=== PATIENT | female | born 1975 | race Caucasian/White ===

== ENCOUNTER 2018-03-24 10:40 | Inpatient (IN) | payer OTHER ==
[2018-03-24 10:49] VITALS: BMI 34.3
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
[2018-03-24] MEDS ORDERED: ACETAMINOPHEN 325 MG TABLET (FP) PO PRN (13:36)
[2018-03-24] MEDS ORDERED: LOPERAMIDE HCL 2 MG CAPSULE PO PRN (13:36)
[2018-03-24] MEDS ORDERED: MAGNESIUM HYDROX 2400MG/30ML ORAL SUSPENSION 30 ML CUP PO PRN (13:36)
[2018-03-24] MEDS ORDERED: P-EPHED 60MG/TRIPROLIDI 2.5MG TABLET PO PRN (13:36)
[2018-03-24] MEDS ORDERED: guaiFENesin/D-METHORPHAN HB 10 ML UNIT-DOSE CUPS PO PRN (13:36)
[2018-03-24] MEDS ORDERED: MAGNESIUM CITRATE 300 ML BOTTLE PO PRN (13:36)
[2018-03-24] MEDS ORDERED: MENTHOL/PHENOL 1 EACH UD MM PRN (13:36)
[2018-03-24] MEDS ORDERED: MAG HYDROX/AL HYDROX/SIMETH 30 ML UNIT-DOSE CUP PO PRN (13:36)
[2018-03-24] MEDS ORDERED: METHADONE HCL 40 MG DISPERSABLE TABLET PO SCH (13:45)
[2018-03-24] MEDS ORDERED: METHADONE HCL 40 MG DISPERSABLE TABLET ONE (15:34)
[2018-03-24] MEDS ORDERED: METHADONE HCL 10 MG TABLET ONE (15:34)
[2018-03-24] MEDS: METHADONE 40 MG, METHADONE 30 MG PO SCH (15:35)
[2018-03-24] MEDS: chlordiazePOXIDE HCL 25 MG CAPSULE PO PRN ×2 (15:36→20:00)
[2018-03-24] MEDS: chlordiazePOXIDE HCL 25 MG CAPSULE PO SCH ×2 (17:32→22:20)
[2018-03-24 17:37] LABS: URINE APPEARANCE SLCLOUDY; URINE BILIRUBIN NEGATIVE (<2.0 mg/dL); URINE COLOR YELLOW; URINE GLUCOSE (UA) NEGATIVE (NEGATIVE); URINE KETONE NEGATIVE (NEGATIVE); URINE LEUK ESTERASE NEGATIVE (NEGATIVE); URINE NITRITE NEGATIVE (NEGATIVE); URINE PROTEIN NEGATIVE (NEGATIVE); URINE UROBILINOGEN NEGATIVE mg/dL (0.2-1.0)
[2018-03-24] MEDS: THIAMINE HCL 100 MG TABLET (FP) PO SCH (22:19)
[2018-03-24] MEDS: RANITIDINE HCL 150 MG TABLET (FP) PO SCH (22:19)
[2018-03-24] MEDS: levETIRAcetam 500 MG TABLET (FP) PO SCH (22:19)
[2018-03-24] MEDS: BUDESONIDE/FORMETEROL FUMARATE 80/4.5 mcg INHALER IH SCH (22:20)
[2018-03-24] MEDS: MELATONIN 5 MG TABLETS PO PRN (22:20)
[2018-03-25] MEDS: chlordiazePOXIDE HCL 25 MG CAPSULE PO SCH ×4 (04:30→22:12)
[2018-03-25] MEDS ORDERED: METHADONE HCL 40 MG DISPERSABLE TABLET ONE (04:44)
[2018-03-25] MEDS ORDERED: METHADONE HCL 10 MG TABLET ONE (04:45)
[2018-03-25] MEDS: METHADONE 40 MG, METHADONE 30 MG PO SCH (05:31)
[2018-03-25] MEDS: hydrOXYzine PAMOATE 50 MG CAPSULE (FP) PO PRN ×2 (05:34→13:51)
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
--- NOTE | 2018-03-25 10:07 | EKG ---
Test Reason : Blood Pressure : / mmHG Vent. Rate : 073 BPM Atrial Rate : 073 BPM P-R Int : 120 ms QRS Dur : 088 ms QT Int : 386 ms P-R-T Axes : 051 057 052 degrees QTc Int : 425 ms NORMAL SINUS RHYTHM NORMAL ECG NO PREVIOUS ECGS AVAILABLE Confirmed by Herman Zayas MD ([id number]) on 03/25/2018 10:06:24 AM Referred By: Confirmed By:Herman Zayas MD
[2018-03-25] MEDS: levETIRAcetam 500 MG TABLET (FP) PO SCH ×2 (10:19→22:12)
[2018-03-25] MEDS: QUEtiapine FUMARATE 50 MG TABLET PO SCH (10:20)
[2018-03-25] MEDS: SERTRALINE HCL 50 MG TABLET (FP) PO SCH (10:20)
[2018-03-25] MEDS: PRENATAL VITAMINS W/ FOLIC ACID TABLET (FP) PO SCH (10:20)
[2018-03-25] MEDS: BUDESONIDE/FORMETEROL FUMARATE 80/4.5 mcg INHALER IH SCH ×2 (10:21→22:35)
[2018-03-25 10:24] LABS: HEMATOCRIT 39.4 % (32.4-45.2); HEMOGLOBIN 12.7 GM/dL (10.7-15.3); MCHC 32.2 g/dl (32.0-36.0); MEAN CELL VOLUME 86.7 fl (80-96); MEAN PLT VOLUME 8.3 fl (7.5-11.1); PLATELET COUNT 226 K/MM3 (134-434); RBC 4.54 M/mm3 (3.60-5.2); WHITE BLOOD COUNT 7.8 K/mm3 (4.0-10.0)
[2018-03-25 10:52] LABS: ALBUMIN 4.4 g/dl (3.4-5.0); ALK PHOS 99 U/L (45-117); ANION GAP 8 MMOL/L (8-16); BILIRUBIN,TOTAL 0.2 mg/dL (0.2-1); BLOOD UREA NITROGEN 17 mg/dL (7-18); CALCIUM 8.9 mg/dL (8.5-10.1); CHLORIDE 107 mmol/L (98-107); CO2 23 mmol/L (21-32); CREATININE 0.7 mg/dL (0.55-1.3); GLUCOSE,RANDOM 97 mg/dL (74-106); POTASSIUM 4.1 mmol/L (3.5-5.1); SGOT/AST 47 U/L (15-37); SGPT/ALT 82 U/L (13-61); SODIUM 139 mmol/L (136-145); TOT PROT 8.1 g/dl (6.4-8.2)
[2018-03-25 11:11] LABS: SICKLE CELL SCREEN NEGATIVE (NEGATIVE)
--- NOTE | 2018-03-25 12:14 | PN ---
S CIWA - CIWA Score Nausea/Vomitin-Mild Nausea/No Vomiting Muscle Tremors: 4-Moderate,w/Arms Extend Anxiety: 4-Mod. Anxious/Guarded Agitation: 3 Paroxysmal Sweats: 2 Orientation: 0-Oriented Tacttile Disturbances: 0-None Auditory Disturbances: 0-None Visual Disturbances: 0-None Headache: 0-None Present CIWA-Ar Total Score: 14 BHS Progress Note (SOAP) Subjective: PATIENT C/O SHAKES, ANXIETY, RESTLESSNESS AND NAUSEA. Objective: 03/25/18 12:12 Vital Signs Temperature 98.6 F 03/25/18 09:28 Pulse Rate 80 03/25/18 09:28 Respiratory Rate 18 03/25/18 09:28 Blood Pressure 139/66 03/25/18 09:28 O2 Sat by Pulse Oximetry (%) Laboratory Tests 03/24/18 03/25/18 03/25/18 14:20 06:00 06:00 WBC 7.8 RBC 4.54 Hgb 12.7 Hct 39.4 MCV 86.7 MCH 28.0 MCHC 32.2 RDW 14.0 Plt Count 226 MPV 8.3 Sickle Cell Screen Negative Sodium 139 Potassium 4.1 Chloride 107 Carbon Dioxide 23 Anion Gap 8 BUN 17 Creatinine 0.7 Creat Clearance w eGFR > 60 Random Glucose 97 Calcium 8.9 Total Bilirubin 0.2 AST 47 H ALT 82 H Alkaline Phosphatase 99 Total Protein 8.1 Albumin 4.4 Urine Color Yellow Urine Appearance Slcloudy Urine pH 6.0 Ur Specific [place] 1.024 Urine Protein Negative Urine Glucose (UA) Negative Urine Ketones Negative Urine Blood Negative Urine Nitrite Negative Urine Bilirubin Negative Urine Urobilinogen Negative Ur Leukocyte Esterase Negative RPR Titer 03/25/18 06:00 WBC RBC Hgb Hct MCV MCH MCHC RDW Plt Count MPV Sickle Cell Screen Sodium Potassium Chloride Carbon Dioxide Anion Gap BUN Creatinine Creat Clearance w eGFR Random Glucose Calcium Total Bilirubin AST ALT Alkaline Phosphatase Total Protein Albumin Urine Color Urine Appearance Urine pH Ur Specific [place] Urine Protein Urine Glucose (UA) Urine Ketones Urine Blood Urine Nitrite Urine Bilirubin Urine Urobilinogen Ur Leukocyte Esterase RPR Titer Nonreactive PE: ALERT AND ORIENTED X 3 SKIN WARM, +FACIAL SWEATING CAR S1S2 RESP CTA BL EXT +TREMORS, AMB AD MICHAEL PACING AND ANXIOUS Assessment: 03/25/18 12:13 WITHDRAWAL SX Plan: CONTINUE DETOX ENCOURAGE ORAL FLUIDS CONTINUE TO MONITOR CLINICALLY
[2018-03-25] MEDS: IBUPROFEN 400 MG TABLET (FP) PO PRN (15:14)
[2018-03-25] MEDS: chlordiazePOXIDE HCL 25 MG CAPSULE PO PRN (15:15)
[2018-03-25] MEDS: THIAMINE HCL 100 MG TABLET (FP) PO SCH (22:12)
[2018-03-25] MEDS: QUEtiapine FUMARATE 200 MG TABLET PO SCH (22:13)
[2018-03-25] MEDS: RANITIDINE HCL 150 MG TABLET (FP) PO SCH (22:13)
[2018-03-26] MEDS ORDERED: METHADONE HCL 10 MG TABLET ONE (06:06)
[2018-03-26] MEDS: chlordiazePOXIDE HCL 25 MG CAPSULE PO SCH ×2 (06:06→11:07)
[2018-03-26] MEDS: METHADONE 40 MG, METHADONE 30 MG PO SCH (06:06)
[2018-03-26] MEDS ORDERED: METHADONE HCL 40 MG DISPERSABLE TABLET ONE (06:06)
[2018-03-26] MEDS: IBUPROFEN 400 MG TABLET (FP) PO PRN (06:35)
[2018-03-26] MEDS: ALBUTEROL SO4 8 GM HFA INHALER IH PRN (07:54)
[2018-03-26] MEDS: levETIRAcetam 500 MG TABLET (FP) PO SCH ×2 (10:54→22:06)
[2018-03-26] MEDS: SERTRALINE HCL 50 MG TABLET (FP) PO SCH (10:54)
[2018-03-26] MEDS: BUDESONIDE/FORMETEROL FUMARATE 80/4.5 mcg INHALER IH SCH ×2 (10:55→22:06)
[2018-03-26] MEDS: PRENATAL VITAMINS W/ FOLIC ACID TABLET (FP) PO SCH (10:55)
[2018-03-26] MEDS: QUEtiapine FUMARATE 50 MG TABLET PO SCH (10:55)
[2018-03-26] MEDS: hydrOXYzine PAMOATE 50 MG CAPSULE (FP) PO PRN ×2 (10:56→18:32)
[2018-03-26] MEDS: chlordiazePOXIDE HCL 25 MG CAPSULE PO PRN (12:58)
--- NOTE | 2018-03-26 16:16 | PN ---
S CIWA - CIWA Score Nausea/Vomitin-No Nausea/No Vomiting Muscle Tremors: 3 Anxiety: 3 Agitation: 2 Paroxysmal Sweats: No Perspiration Orientation: 0-Oriented Tacttile Disturbances: 0-None Auditory Disturbances: 0-None Visual Disturbances: 0-None Headache: 0-None Present CIWA-Ar Total Score: 8 BHS Progress Note (SOAP) Subjective: PATIENT C/O SHAKES, ANXIETY AND FEELING RESTLESS. Objective: 03/26/18 16:14 Vital Signs Temperature 97.9 F 03/26/18 14:31 Pulse Rate 71 03/26/18 14:31 Respiratory Rate 18 03/26/18 14:31 Blood Pressure 95/54 L 03/26/18 14:31 O2 Sat by Pulse Oximetry (%) Laboratory Tests 03/24/18 03/24/18 03/25/18 14:20 14:30 06:00 WBC 7.8 RBC 4.54 Hgb 12.7 Hct 39.4 MCV 86.7 MCH 28.0 MCHC 32.2 RDW 14.0 Plt Count 226 MPV 8.3 Sickle Cell Screen Negative Sodium Potassium Chloride Carbon Dioxide Anion Gap BUN Creatinine Creat Clearance w eGFR Random Glucose Calcium Total Bilirubin AST ALT Alkaline Phosphatase Total Protein Albumin Urine Color Yellow Urine Appearance Slcloudy Urine pH 6.0 Ur Specific [place] 1.024 Urine Protein Negative Urine Glucose (UA) Negative Urine Ketones Negative Urine Blood Negative Urine Nitrite Negative Urine Bilirubin Negative Urine Urobilinogen Negative Ur Leukocyte Esterase Negative Levetiracetam 21.0 RPR Titer 03/25/18 03/25/18 06:00 06:00 WBC RBC Hgb Hct MCV MCH MCHC RDW Plt Count MPV Sickle Cell Screen Sodium 139 Potassium 4.1 Chloride 107 Carbon Dioxide 23 Anion Gap 8 BUN 17 Creatinine 0.7 Creat Clearance w eGFR > 60 Random Glucose 97 Calcium 8.9 Total Bilirubin 0.2 AST 47 H ALT 82 H Alkaline Phosphatase 99 Total Protein 8.1 Albumin 4.4 Urine Color Urine Appearance Urine pH Ur Specific [place] Urine Protein Urine Glucose (UA) Urine Ketones Urine Blood Urine Nitrite Urine Bilirubin Urine Urobilinogen Ur Leukocyte Esterase Levetiracetam RPR Titer Nonreactive PE: ALERT AND ORIENTED X 3 SKIN WARM AND DRY EXT +TREMORS, FULL ROM, NO EDEMA +ANXIETY AMB AD MICHAEL Assessment: 03/26/18 16:15 WITHDRAWAL SX Plan: CONTINUE DETOX ENCOURAGE ORAL FLUIDS CONTINUE TO MONITOR
[2018-03-26] MEDS: chlordiazePOXIDE 5 MG CAPSULE PO SCH ×2 (17:16→22:06)
[2018-03-26] MEDS: THIAMINE HCL 100 MG TABLET (FP) PO SCH (22:06)
[2018-03-26] MEDS: QUEtiapine FUMARATE 200 MG TABLET PO SCH (22:07)
[2018-03-26] MEDS: RANITIDINE HCL 150 MG TABLET (FP) PO SCH (22:07)
[2018-03-27] MEDS ORDERED: METHADONE HCL 40 MG DISPERSABLE TABLET ONE (05:01)
[2018-03-27] MEDS ORDERED: METHADONE HCL 10 MG TABLET ONE (05:01)
[2018-03-27] MEDS: METHADONE 40 MG, METHADONE 30 MG PO SCH (05:39)
[2018-03-27] MEDS: chlordiazePOXIDE 5 MG CAPSULE PO SCH ×2 (05:40→10:12)
[2018-03-27] MEDS: BUDESONIDE/FORMETEROL FUMARATE 80/4.5 mcg INHALER IH SCH ×2 (10:11→21:58)
[2018-03-27] MEDS: levETIRAcetam 500 MG TABLET (FP) PO SCH ×2 (10:12→22:00)
[2018-03-27] MEDS: PRENATAL VITAMINS W/ FOLIC ACID TABLET (FP) PO SCH (10:12)
[2018-03-27] MEDS: SERTRALINE HCL 50 MG TABLET (FP) PO SCH (10:12)
[2018-03-27] MEDS: QUEtiapine FUMARATE 50 MG TABLET PO SCH (10:12)
[2018-03-27] MEDS ORDERED: ONDANSETRON *ODT* 4 MG TABLET SL PRN (11:15)
--- NOTE | 2018-03-27 11:31 | PN ---
MARIO Progress Note Note: Psychiatric nurse practitioner note: Patient seen by hand sign writer for initial psychiatric consultation. Patient able to tolerate seroquel 200mg HS dose. Patient is prescribed Seroquel 300mg HS from Mental health provider. Will increase seroquel dosage to 300mg. Verbal consent given.
--- NOTE | 2018-03-27 11:49 | PN ---
BHS Progress Note (SOAP) Subjective: nausea anxiety Objective: 03/27/18 11:49 Vital Signs Temperature 97.9 F 03/27/18 09:47 Pulse Rate 79 03/27/18 09:47 Respiratory Rate 18 03/27/18 09:47 Blood Pressure 116/64 03/27/18 09:47 O2 Sat by Pulse Oximetry (%) [id number] ambulating no acute distress Assessment: 03/27/18 11:49 mild withdrawal sx Plan: continue detox increase fluids zofran prn d/c in am
[2018-03-27] MEDS: chlordiazePOXIDE HCL 10 MG CAPSULE PO SCH ×2 (16:59→22:00)
[2018-03-27] MEDS: THIAMINE HCL 100 MG TABLET (FP) PO SCH (21:59)
[2018-03-27] MEDS: RANITIDINE HCL 150 MG TABLET (FP) PO SCH (21:59)
[2018-03-27] MEDS ORDERED: QUEtiapine FUMARATE 300 MG TABLET PO SCH (22:00)
[2018-03-27] MEDS: hydrOXYzine PAMOATE 50 MG CAPSULE (FP) PO PRN (22:00)
[2018-03-27] MEDS: MELATONIN 5 MG TABLETS PO PRN (22:00)
[2018-03-28] MEDS ORDERED: METHADONE HCL 40 MG DISPERSABLE TABLET ONE (05:02)
[2018-03-28] MEDS ORDERED: METHADONE HCL 10 MG TABLET ONE (05:03)
[2018-03-28] MEDS: chlordiazePOXIDE HCL 10 MG CAPSULE PO SCH ×2 (06:07→10:18)
[2018-03-28] MEDS: METHADONE 40 MG, METHADONE 30 MG PO SCH (06:07)
[2018-03-28] MEDS: ALBUTEROL SO4 8 GM HFA INHALER IH PRN (09:19)
[2018-03-28 09:37] VITALS: BP 106/67; PULSE 92; TEMP 97.7
--- NOTE | 2018-03-28 09:45 | DS ---
[facility] Detox Discharge Summary Admission Date: 03/24/18 Discharge Date: 03/28/18 - History Present History: Alcohol Dependence, Cannabis Dependence, Cocaine Dependence, Sedative Dependence, MMTP - Physical Exam Results Vital Signs: Vital Signs Temperature 97.7 F 03/28/18 09:36 Pulse Rate 92 H 03/28/18 09:36 Respiratory Rate 18 03/28/18 09:36 Blood Pressure 106/67 03/28/18 09:36 O2 Sat by Pulse Oximetry (%) - Treatment Hospital Course: Detox Protocol Followed, Detoxed Safely, Responded well, Discharged Condition Good, Rehab Referral Accepted - Medication Discharge Medications: Ambulatory Orders Acetaminophen [Tylenol] 650 mg PO Q6H PRN 03/24/18 Albuterol Sulfate Inhaler - [Ventolin Hfa Inhaler -] 2 inh PO Q4H PRN 03/24/18 Budesonide/Formeterol Fumarate [SYMBICORT 80/4.5mcg -] 1 inh PO BID 03/24/18 Dextroamphetamine/Amphetamine [Adderall 7.5 mg Tablet] 7.5 mg PO DAILY 03/24/18 Multivitamins [Tab-A-Vit -] 1 tab PO DAILY 03/24/18 Quetiapine Fumarate [Seroquel -] 300 mg PO HS 03/24/18 Quetiapine Fumarate [Seroquel] 100 mg PO AM 03/24/18 Ranitidine [Zantac -] 150 mg PO HS 03/24/18 Sertraline HCl [Zoloft -] 100 mg PO DAILY 03/24/18 levETIRAcetam [Keppra -] 1,000 mg PO BID 03/24/18 - Diagnosis (1) ADHD Current Visit: Yes Status: Acute (2) Alcohol dependence with uncomplicated withdrawal Current Visit: Yes Status: Chronic (3) Bipolar disorder Current Visit: Yes Status: Acute (4) Heroin abuse Current Visit: Yes Status: Acute (5) History of breast augmentation Current Visit: Yes Status: Acute (6) History of small bowel obstruction Current Visit: Yes Status: Acute (7) Kidney stone on right side Current Visit: Yes Status: Acute (8) Nicotine dependence Current Visit: Yes Status: Chronic Qualifiers: Nicotine product type: cigarettes Substance use status: uncomplicated Qualified Code(s): F17.210 - Nicotine dependence, cigarettes, uncomplicated (9) Sedative, hypnotic or anxiolytic abuse, uncomplicated Current Visit: Yes Status: Chronic (10) Seizure Current Visit: Yes Status: Acute (11) Traumatic brain injury Current Visit: Yes Status: Acute (12) Bipolar II disorder Current Visit: Yes Status: Chronic (13) Cocaine dependence Current Visit: Yes Status: Chronic Qualifiers: Substance use status: uncomplicated Qualified Code(s): F14.20 - Cocaine dependence, uncomplicated (14) Methadone maintenance therapy patient Current Visit: Yes Status: Chronic (15) PTSD (post-traumatic stress disorder) Current Visit: Yes Status: Chronic (16) Substance-induced anxiety disorder Current Visit: Yes Status: Suspected - AMA Did Patient Leave Against Medical Advice: No (referred to [facility])
[2018-03-28] MEDS: PRENATAL VITAMINS W/ FOLIC ACID TABLET (FP) PO SCH (10:17)
[2018-03-28] MEDS: QUEtiapine FUMARATE 50 MG TABLET PO SCH (10:18)
[2018-03-28] MEDS: levETIRAcetam 500 MG TABLET (FP) PO SCH (10:18)
[2018-03-28] MEDS: SERTRALINE HCL 50 MG TABLET (FP) PO SCH (10:18)
[2018-03-28] MEDS: BUDESONIDE/FORMETEROL FUMARATE 80/4.5 mcg INHALER IH SCH (10:18)
== END 2018-03-28 10:50 | disposition home or self-care (01) | DRG 773 ==
LOC: YASAS 10:40 → Y6N 13:48
PROC: HZ2ZZZZ Detoxification Services for Substance Abuse Treatment (ICD-10-PCS; principal; 2018-03-24)
DX: F10.230 Alcohol dependence with withdrawal, uncomplicated (principal); F11.20 Opioid dependence, uncomplicated; F13.20 Sedative, hypnotic or anxiolytic dependence, uncomplicated; F14.20 Cocaine dependence, uncomplicated; F12.20 Cannabis dependence, uncomplicated; F17.210 Nicotine dependence, cigarettes, uncomplicated; F90.9 Attention-deficit hyperactivity disorder, unspecified type; F31.81 Bipolar II disorder; F43.10 Post-traumatic stress disorder, unspecified; F19.280 Other psychoactive substance dependence with psychoactive substance-induced anxiety disorder; G40.89 Other seizures; J45.909 Unspecified asthma, uncomplicated; Z88.0 Allergy status to penicillin; Z87.442 Personal history of urinary calculi; Z98.82 Breast implant status; Z87.820 Personal history of traumatic brain injury; Z91.5 Personal history of self-harm
CPT/HCPCS: 36415; 80053; 80177; 81003; 85027; 85660; 86593; 93005; 93010; Q0162

== ENCOUNTER 2018-06-03 10:58 | Inpatient (IN) | payer OTHER ==
[2018-06-03 12:57] VITALS: BMI 34.3
--- NOTE | 2018-06-03 14:16 | HP ---
COWS - Scale Resting Pulse: 1= [place] 81-100 Sweatin= Chills/Flushing Restless Observation: 1= Difficult to Sit Still Pupil Size: 1= Pupils >than Normal Bone or Joint Aches: 2= Severe Diffuse Aches Runny Nose/ Eye Tearin= Runny Nose/Eyes GI Upset > 30mins: 2= Nausea/Diarrhea Tremor Observation: 2= Slight Tremor Visible Yawning Observation: 1= 1-2x During Session Anxiety or Irritability: 2=Irritable/Anxious Goose Flesh Skin: 0=Smooth Skin COWS Score: 15 CIWA Score Nausea/Vomitin Muscle Tremors: 2 Anxiety: 2 Agitation: 2 Paroxysmal Sweats: 1-Minimal Palms Moist Orientation: 0-Oriented Tacttile Disturbances: 1-Very Mild Itch/Numbness Auditory Disturbances: 1-Very Mild Visual Disturbances: 0-None Headache: 2-Mild CIWA-Ar Total Score: 13 - Admission Criteria [facility]ASAS Guidelines: Admission for Medically Managed Detox: Requires at least one of the followin. CIWA greater than 12 2. Seizures within the past 24 hours 3. Delirium tremens within the past 24 hours 4. Hallucinations within the past 24 hours 5. Acute intervention needed for co occurring medical disorder 6. Acute intervention needed for co occurring psychiatric disorder 7. Severe withdrawal that cannot be handled at a lower level of care (continued vomiting, continued diarrhea, abnormal vital signs) requiring intravenous medication and/or fluids 8. Admission [facility] Chief Complaint: patient requested detox from heroin and alcohol Allergies/Adverse Reactions: Allergies Allergy/AdvReac Type Severity Reaction Status Date / Time buspirone [From BuSpar] Allergy Severe Difficulty Verified 06/03/18 13:57 Breathing penicillin G Allergy Severe Hives Verified 03/24/18 11:51 History of Present Illness: this 43 years old female with heroin and alcohol dependence,seeking detox, withdrawal symptomalso cocaine dependence had previous admissions in detox,last treatment [facility] 2 weeks ago not completed hepatitis c no treatment yet fell at home,fx of right ankle on immobilization and crutches treated at [facility] on 05/31/18 has follow up appointment in 3 weeks nicotine dependence 4 cigarette bipolar disorder,schizophrenia removal of kidney stone right breast implantation in 1988 longest sobriety 2 years plan for rehab after detox Exam Limitations: No Limitations - Ebola screening Have you traveled outside of the country in the last 21 days: No Have you had contact with anyone from an Ebola affected area: No Have you been sick,other than usual withdrawal symptoms: No Do you have a fever: No - Review of Systems Constitutional: Loss of Appetite, Malaise, Night Sweats, Changes in sleep, Weakness EENT: reports: Tearing, Nose Congestion Respiratory: reports: No Symptoms reported, Other (asthma) Cardiac: reports: No Symptoms Reported GI: reports: Diarrhea, Nausea, Vomiting, Abdominal cramping : reports: No Symptoms Reported Musculoskeletal: reports: Back Pain, Joint Pain, Muscle Pain, Joint Stiffness, Other (fx of right ankle s/p immobilization ,on crutches) Integumentary: reports: Dryness Neuro: reports: Headache, Tremors Endocrine: reports: No Symptoms Reported Hematology: reports: No Symptoms Reported Psychiatric: reports: No Sypmtoms Reported, Judgement Intact, Mood/Affect Appropiate, Orientated x3, Depressed, other (bipolar disorder,achzophrenia,) Other Systems: Reviewed and Negative Patient History - Patient Medical History Hx Asthma: Yes (on albuterol inhaler) Hx Chronic Obstructive Pulmonary Disease (COPD): No Hx Cancer: No Hx Cardiac Disorders: No Hx Congestive Heart Failure: No Hx Hypertension: No Hx Hypercholesterolemia: No Hx Pacemaker: No HX Cerebrovascular Accident: No Hx Seizures: Yes (r/t head trauma-last episode was in 01/2018) Hx Dementia: No Hx Diabetes: No Hx Gastrointestinal Disorders: Yes (bowel obstruction) Hx Liver Disease: No Hx Genitourinary Disorders: Yes (kidney stone right) Hx Sexually Transmitted Disorders: No Hx Renal Disease (ESRD): No Hx Thyroid Disease: No Hx Human Immunodeficiency Virus (HIV): No (last 05/06 negative) Hx Hepatitis C: No Hx Depression: Yes Hx Suicide Attempt: Yes (pill overdose at age 24) Hx Bipolar Disorder: Yes Hx Schizophrenia: No Other Medical History: no suicidal,no homicidal,fx of right ankle on immobilization and crutches - Patient Surgical History Past Surgical History: Yes Hx Neurologic Surgery: No Hx Cataract Extraction: No Hx Cardiac Surgery: No Hx Lung Surgery: No Hx Breast Surgery: No Hx Breast Biopsy: No Hx Abdominal Surgery: Yes (bowel obstruction in 2015) Hx Appendectomy: No Hx Cholecystectomy: No Hx Genitourinary Surgery: Yes (removal of kidney stones in 2016 right) Hx Section: No Hx Orthopedic Surgery: No Other Surgical History: bilateral breast impant in 1988 - PPD History Previous Implant?: Yes Documented Results: Negative w/proof Implanted On Prior [facility] Admission?: Yes Date: 03/26/18 Results: 0 mm PPD to be Administered?: No - Reproductive History Patient is a Female of Child Bearing Age (11 -55 yrs old): Yes Last Menstrual Period: 04/18/18 Patient : No - Smoking Cessation Smoking history: Current every day smoker Have you smoked in the past 12 months: Yes Aproximately how many cigarettes per day: 5 Hx Chewing Tobacco Use: No Initiated information on smoking cessation: Yes 'Breaking Loose' booklet given: 06/03/18 - Substance & Tx. History Hx Alcohol Use: Yes Hx Substance Use: Yes Substance Use Type: Cocaine, Heroin Hx Substance Use Treatment: Yes ([facility] 05/06 not completed) - Substances Abused Heroin Route: Injection Frequency: Daily Amount used: 7-8 bags Age of first use: 24 Date of Last Use: 06/03/18 Alcohol Route: Oral Frequency: Daily Amount used: 4-5 nibs vodka Age of first use: 14 Date of Last Use: 06/02/18 Cocaine Route: Injection Frequency: Daily Amount used: 4-5 bags Age of first use: 24 Date of Last Use: 06/01/18 Alprazolam (Xanax) Route: Oral Frequency: Daily Amount used: 4mg Age of first use: 14 Date of Last Use: 05/30/18 Family Disease History - Family Disease History Family Disease History: Other: Mother (alcohol) Admission Physical Exam [facility] - Vital Signs Vital Signs: Vital Signs - 24 hr 06/03/18 12:53 Temperature 97.9 F Pulse Rate 81 Respiratory 20 Rate Blood Pressure 122/70 - Physical General Appearance: Yes: Moderate Distress, Tremorous, Irritable, Sweating, Anxious HEENTM: Yes: Normal ENT Inspection, CHARLENE, Pharynx Normal Respiratory: Yes: Lungs Clear, Normal Breath Sounds, No Respiratory Distress, Other (asthma) Neck: Yes: Within Normal Limits, Supple, Trachea in good position Breast: Yes: Breast Exam Deferred, Other (s/p bilaterl breast implantation) Cardiology: Yes: Within Normal Limits, Regular Rhythm, Regular Rate, S1, S2 Abdominal: Yes: Within Normal Limits, Normal Bowel Sounds, Non Tender, Flat, Soft, Surgical Scar Genitourinary: Yes: Within Normal Limits, Other (kidney stone right) Back: Yes: Muscle Spasm Musculoskeletal: Yes: Back pain, Muscle Pain Extremities: Yes: Tremors, Other (fx of right ankle on 05/31/18 treated at [facility] on immobilization and non weight bearing crutches walking) Neurological: Yes: crm technical lead II-XII NML intact, Fully Oriented, Alert, Motor Strength 5/5 Integumentary: Yes: Dry Lymphatic: Yes: Within Normal Limits - Diagnostic (1) Opioid dependence with withdrawal Current Visit: Yes Status: Acute (2) Alcohol dependence with uncomplicated withdrawal Current Visit: No Status: Chronic (3) Cocaine dependence Current Visit: Yes Status: Acute (4) Cocaine dependence Current Visit: No Status: Chronic Qualifiers: Substance use status: uncomplicated Qualified Code(s): F14.20 - Cocaine dependence, uncomplicated (5) Seizure Current Visit: No Status: Acute (6) Traumatic brain injury Current Visit: No Status: Acute (7) Bipolar II disorder Current Visit: No Status: Chronic (8) PTSD (post-traumatic stress disorder) Current Visit: No Status: Chronic (9) History of breast augmentation Current Visit: No Status: Acute (10) History of small bowel obstruction Current Visit: No Status: Acute (11) Kidney stone on right side Current Visit: No Status: Acute (12) Nicotine dependence Current Visit: No Status: Chronic Qualifiers: Nicotine product type: cigarettes Substance use status: uncomplicated Qualified Code(s): F17.210 - Nicotine dependence, cigarettes, uncomplicated (13) Sedative, hypnotic or anxiolytic abuse, uncomplicated Current Visit: No Status: Chronic (14) History of fracture of right ankle Current Visit: Yes Status: Acute Cleared for Admission [facility] - Detox or Rehab [facility] Level of Care: Medically Managed Detox Regimen/Protocol: Methadone/Valium S Breath Alcohol Content Breath Alcohol Content: 0 Urine Pregancy Test - Result Urine Test Results: Negative - NO Line Present Urine Drug Screen - Results Drug Screen Negative: No Urine Drug Screen Results: HERBERT-Cocaine, OPI-Opiates, BZO-Benzodiazepines, MTD- Methadone, OXY-Oxycodone, FEN-Fentanyl Inpatient Rehab Admission - Rehab Decision to Admit Inpatient rehab admission?: No
[2018-06-03] MEDS ORDERED: MAGNESIUM HYDROX 2400MG/30ML ORAL SUSPENSION 30 ML CUP PO PRN (14:38)
[2018-06-03] MEDS ORDERED: NICOTINE POLACRILEX 2 MG GUM BUC PRN (14:38)
[2018-06-03] MEDS ORDERED: MAGNESIUM CITRATE 300 ML BOTTLE PO PRN (14:38)
[2018-06-03] MEDS ORDERED: BISMUTH SUBSALICYLATE 524 MG/30 ML UD PO PRN (14:38)
[2018-06-03] MEDS ORDERED: ACETAMINOPHEN 325 MG TABLET (FP) PO PRN ×2 (14:38)
[2018-06-03] MEDS ORDERED: MAG HYDROX/AL HYDROX/SIMETH 30 ML UNIT-DOSE CUP PO PRN (14:38)
[2018-06-03] MEDS ORDERED: MENTHOL/PHENOL 1 EACH UD MM PRN (14:38)
[2018-06-03] MEDS ORDERED: ALBUTEROL SO4 8 GM HFA INHALER IH PRN (14:45)
[2018-06-03] MEDS ORDERED: diazePAM 5 MG TABLET PO ONE (15:00)
[2018-06-03] MEDS ORDERED: METHADONE HCL 10 MG TABLET (FOR DETOX USE ONLY) PO ONE ×2 (15:10→23:00)
[2018-06-03] MEDS: GABAPENTIN 400 MG CAPSULE (FP) PO SCH ×2 (16:04→22:27)
[2018-06-03] MEDS: cloNIDine HCL 0.1 MG TABLET PO PRN (18:25)
[2018-06-03] MEDS: IBUPROFEN 400 MG TABLET (FP) PO PRN (18:25)
[2018-06-03] MEDS: diazePAM 5 MG TABLET PO PRN (20:56)
[2018-06-03] MEDS: THIAMINE HCL 100 MG TABLET (FP) PO SCH (22:26)
[2018-06-03] MEDS: BUDESONIDE/FORMETEROL FUMARATE 80/4.5 mcg INHALER IH SCH (22:27)
[2018-06-03] MEDS: RANITIDINE HCL 150 MG TABLET (FP) PO SCH (22:27)
[2018-06-03] MEDS: levETIRAcetam 500 MG TABLET (FP) PO SCH (22:27)
[2018-06-03] MEDS: diazePAM 5 MG TABLET PO SCH (23:43)
[2018-06-04] MEDS: diazePAM 5 MG TABLET PO PRN ×3 (01:25→19:12)
[2018-06-04] MEDS: IBUPROFEN 400 MG TABLET (FP) PO PRN ×2 (01:26→19:10)
[2018-06-04] MEDS: diazePAM 5 MG TABLET PO SCH ×3 (07:00→22:07)
[2018-06-04] MEDS: GABAPENTIN 400 MG CAPSULE (FP) PO SCH ×3 (07:00→22:07)
[2018-06-04] MEDS: METHOCARBAMOL 500 MG TABLET PO PRN (07:14)
[2018-06-04] MEDS ORDERED: METHADONE HCL 10 MG TABLET (FOR DETOX USE ONLY) PO ONE (10:00)
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
[2018-06-04] MEDS: levETIRAcetam 500 MG TABLET (FP) PO SCH ×2 (10:38→22:07)
[2018-06-04] MEDS: PRENATAL VITAMINS W/ FOLIC ACID TABLET (FP) PO SCH (10:38)
[2018-06-04] MEDS: BUDESONIDE/FORMETEROL FUMARATE 80/4.5 mcg INHALER IH SCH ×2 (10:39→23:09)
[2018-06-04 11:01] LABS: HEMATOCRIT 34.9 % (32.4-45.2); HEMOGLOBIN 11.7 GM/dL (10.7-15.3); MCH 29.1 pg (25.7-33.7); MCHC 33.6 g/dl (32.0-36.0); MEAN CELL VOLUME 86.4 fl (80-96); PLATELET COUNT 247 K/MM3 (134-434); RBC 4.03 M/mm3 (3.60-5.2); RDW 13.6 % (11.6-15.6); WHITE BLOOD COUNT 8.9 K/mm3 (4.0-10.0)
[2018-06-04 11:30] LABS: ALK PHOS 96 U/L (45-117); ANION GAP 4 MMOL/L (8-16); BILIRUBIN,TOTAL 0.3 mg/dL (0.2-1); BLOOD UREA NITROGEN 20 mg/dL (7-18); CALCIUM 8.7 mg/dL (8.5-10.1); CHLORIDE 105 mmol/L (98-107); CO2 28 mmol/L (21-32); CREATININE 0.8 mg/dL (0.55-1.3); GLUCOSE,RANDOM 96 mg/dL (74-106); POTASSIUM 4.2 mmol/L (3.5-5.1); SGOT/AST 58 U/L (15-37); SGPT/ALT 72 U/L (13-61); SODIUM 137 mmol/L (136-145); TOT PROT 7.4 g/dl (6.4-8.2)
--- NOTE | 2018-06-04 11:48 | PN ---
[facility] CIWA - CIWA Score Nausea/Vomitin-Mild Nausea/No Vomiting Muscle Tremors: 1-None Visible, but [place] Anxiety: 1-Mildly Anxious Agitation: 1-Slight > Activity Paroxysmal Sweats: 1-Minimal Palms Moist Orientation: 0-Oriented Tacttile Disturbances: 0-None Auditory Disturbances: 0-None Visual Disturbances: 0-None Headache: 1-Very Mild CIWA-Ar Total Score: 6 [facility] COWS - Scale Resting Pulse: 1= [place] 81-100 Sweatin= Chills/Flushing Restless Observation: 0= Sits Still Pupil Size: 0= Normal to Room Light Bone or Joint Aches: 1= Mild Discomfort Runny Nose/ Eye Tearin= Nasal Congestion GI Upset > 30mins: 2= Nausea/Diarrhea Tremor Observation of Outstretched Hands: 2= Slight Tremor Visible Yawning Observation: 1= 1-2x During Session Anxiety or Irritability: 1=Feels Anxious/Irritable Goose Flesh Skin: 0=Smooth Skin COWS Score: 10 S Progress Note (SOAP) Subjective: here for alcohol and heroin detox, s/p ankle frx with cast in place after alcohol related fall h/o seizures O: Vital Signs - 24 hr 06/03/18 06/03/18 06/03/18 12:53 17:22 21:40 Temperature 97.9 F 98.2 F 98.1 F Pulse Rate 81 80 78 Respiratory 20 18 18 Rate Blood Pressure 122/70 126/64 133/88 06/04/18 06/04/18 06/04/18 03:30 07:21 09:32 Temperature 97.5 F L 97.9 F Pulse Rate 53 L 83 Respiratory 18 18 16 Rate Blood Pressure 124/53 L 109/57 L Laboratory Tests 06/04/18 06/04/18 06:30 06:30 WBC 8.9 RBC 4.03 Hgb 11.7 Hct 34.9 MCV 86.4 MCH 29.1 MCHC 33.6 RDW 13.6 Plt Count 247 MPV 8.0 Sodium 137 Potassium 4.2 Chloride 105 Carbon Dioxide 28 Anion Gap 4 L BUN 20 H Creatinine 0.8 Creat Clearance w eGFR 77.57 Random Glucose 96 Calcium 8.7 Total Bilirubin 0.3 AST 58 H ALT 72 H Alkaline Phosphatase 96 Total Protein 7.4 Albumin 4.0 mildly increased LFT's cast on R leg- crutches a/p continue alcohol and heroin detox on [facility] for seizure history using crutches for ambulatory assistance
[2018-06-04] MEDS: cloNIDine HCL 0.1 MG TABLET PO PRN (12:02)
[2018-06-04] MEDS: RANITIDINE HCL 150 MG TABLET (FP) PO SCH (22:07)
[2018-06-04] MEDS: THIAMINE HCL 100 MG TABLET (FP) PO SCH (22:08)
[2018-06-04] MEDS: MELATONIN 5 MG TABLETS PO PRN (22:09)
[2018-06-05] MEDS: GABAPENTIN 400 MG CAPSULE (FP) PO SCH ×3 (05:34→22:03)
[2018-06-05] MEDS: diazePAM 5 MG TABLET PO PRN ×3 (05:34→20:51)
[2018-06-05] MEDS: IBUPROFEN 400 MG TABLET (FP) PO PRN ×2 (05:36→16:36)
[2018-06-05] MEDS ORDERED: METHADONE HCL 10 MG TABLET (FOR DETOX USE ONLY) PO ONE (10:00)
[2018-06-05] MEDS: BUDESONIDE/FORMETEROL FUMARATE 80/4.5 mcg INHALER IH SCH ×2 (11:16→22:06)
[2018-06-05] MEDS: SERTRALINE HCL 50 MG TABLET (FP) PO SCH (11:17)
[2018-06-05] MEDS: levETIRAcetam 500 MG TABLET (FP) PO SCH ×2 (11:17→22:03)
[2018-06-05] MEDS: diazePAM 5 MG TABLET PO SCH ×2 (11:17→22:03)
[2018-06-05] MEDS: PRENATAL VITAMINS W/ FOLIC ACID TABLET (FP) PO SCH (11:18)
--- NOTE | 2018-06-05 11:34 | PN ---
S CIWA - CIWA Score Nausea/Vomitin Muscle Tremors: 2 Anxiety: 2 Agitation: 3 Paroxysmal Sweats: 1-Minimal Palms Moist Orientation: 0-Oriented Tacttile Disturbances: 1-Very Mild Itch/Numbness Auditory Disturbances: 1-Very Mild Visual Disturbances: 0-None Headache: 2-Mild CIWA-Ar Total Score: 14 [facility] COWS - Scale Resting Pulse: 1= ME 81-100 Sweatin= Chills/Flushing Restless Observation: 3= Extraneous Movement Pupil Size: 1= Pupils >than Normal Bone or Joint Aches: 2= Severe Diffuse Aches Runny Nose/ Eye Tearin= Nasal Congestion GI Upset > 30mins: 2= Nausea/Diarrhea Tremor Observation of Outstretched Hands: 2= Slight Tremor Visible Yawning Observation: 1= 1-2x During Session Anxiety or Irritability: 2=Irritable/Anxious Goose Flesh Skin: 0=Smooth Skin COWS Score: 16 [facility] Progress Note (SOAP) Subjective: alert,irritable,anxious,interrupted sleep,pain in the body,aback and ankle Objective: 06/05/18 11:33 Vital Signs Temperature 97.7 F 06/05/18 09:53 Pulse Rate 89 06/05/18 09:53 Respiratory Rate 16 06/05/18 09:53 Blood Pressure 111/69 06/05/18 09:53 O2 Sat by Pulse Oximetry (%) 06/05/18 11:33 Laboratory Last Values WBC 8.9 K/mm3 (4.0-10.0) 06/04/18 06:30 RBC 4.03 M/mm3 (3.60-5.2) 06/04/18 06:30 Hgb 11.7 GM/dL (10.7-15.3) 06/04/18 06:30 Hct 34.9 % (32.4-45.2) 06/04/18 06:30 MCV 86.4 fl (80-96) 06/04/18 06:30 MCH 29.1 pg (25.7-33.7) 06/04/18 06:30 MCHC 33.6 g/dl (32.0-36.0) 06/04/18 06:30 RDW 13.6 % (11.6-15.6) 06/04/18 06:30 Plt Count 247 K/MM3 (134-434) 06/04/18 06:30 MPV 8.0 fl (7.5-11.1) 06/04/18 06:30 Sodium 137 mmol/L (136-145) 06/04/18 06:30 Potassium 4.2 mmol/L (3.5-5.1) 06/04/18 06:30 Chloride 105 mmol/L (98-107) 06/04/18 06:30 Carbon Dioxide 28 mmol/L (21-32) 06/04/18 06:30 Anion Gap 4 MMOL/L (8-16) L 06/04/18 06:30 BUN 20 mg/dL (7-18) H 06/04/18 06:30 Creatinine 0.8 mg/dL (0.55-1.3) 06/04/18 06:30 Creat Clearance w eGFR 77.57 (>60) 06/04/18 06:30 Random Glucose 96 mg/dL (74-106) 06/04/18 06:30 Calcium 8.7 mg/dL (8.5-10.1) 06/04/18 06:30 Total Bilirubin 0.3 mg/dL (0.2-1) 06/04/18 06:30 AST 58 U/L (15-37) H 06/04/18 06:30 ALT 72 U/L (13-61) H 06/04/18 06:30 Alkaline Phosphatase 96 U/L (45-117) 06/04/18 06:30 Total Protein 7.4 g/dl (6.4-8.2) 06/04/18 06:30 Albumin 4.0 g/dl (3.4-5.0) 06/04/18 06:30 RPR Titer Nonreactive (NONREACTIVE) 06/04/18 06:30 Assessment: 06/05/18 11:33 withdrawal symptom Plan: continue detox
[2018-06-05] MEDS: cloNIDine HCL 0.1 MG TABLET PO PRN (16:36)
[2018-06-05] MEDS: METHOCARBAMOL 500 MG TABLET PO PRN (20:51)
[2018-06-05] MEDS ORDERED: SUVOREXANT 10 MG TABLET PO PRN (22:00)
[2018-06-05] MEDS: MELATONIN 5 MG TABLETS PO PRN (22:03)
[2018-06-05] MEDS: QUEtiapine FUMARATE 300 MG TABLET PO SCH (22:03)
[2018-06-05] MEDS: RANITIDINE HCL 150 MG TABLET (FP) PO SCH (22:03)
[2018-06-05] MEDS: THIAMINE HCL 100 MG TABLET (FP) PO SCH (22:03)
[2018-06-06] MEDS: IBUPROFEN 400 MG TABLET (FP) PO PRN ×3 (01:54→18:16)
[2018-06-06] MEDS: diazePAM 5 MG TABLET PO PRN ×2 (01:54→10:05)
[2018-06-06] MEDS ORDERED: diazePAM 5 MG TABLET PO SCH (06:00)
[2018-06-06] MEDS: GABAPENTIN 400 MG CAPSULE (FP) PO SCH ×3 (06:35→21:21)
[2018-06-06] MEDS ORDERED: QUEtiapine FUMARATE 100 MG TABLET (FP) PO SCH (07:00)
[2018-06-06] MEDS ORDERED: METHADONE HCL 10 MG TABLET (FOR DETOX USE ONLY) PO ONE (10:00)
[2018-06-06] MEDS: levETIRAcetam 500 MG TABLET (FP) PO SCH ×2 (10:01→21:20)
[2018-06-06] MEDS: PRENATAL VITAMINS W/ FOLIC ACID TABLET (FP) PO SCH (10:01)
[2018-06-06] MEDS: SERTRALINE HCL 50 MG TABLET (FP) PO SCH (10:02)
[2018-06-06] MEDS: BUDESONIDE/FORMETEROL FUMARATE 80/4.5 mcg INHALER IH SCH ×2 (11:04→21:21)
[2018-06-06] MEDS: METHOCARBAMOL 500 MG TABLET PO PRN ×2 (12:26→18:18)
--- NOTE | 2018-06-06 12:38 | PN ---
[facility] Progress Note (SOAP) Subjective: alert,irritable,anxious,pain in body,back,right ankle,ambulation with crutches Objective: 06/06/18 12:37 Vital Signs Temperature 96.8 F L 06/06/18 09:36 Pulse Rate 88 06/06/18 09:36 Respiratory Rate 18 06/06/18 09:36 Blood Pressure 101/66 06/06/18 09:36 O2 Sat by Pulse Oximetry (%) Assessment: 06/06/18 12:37 withdrawal symptom Plan: continue detox,discharge in am
[2018-06-06] MEDS: hydrOXYzine PAMOATE 25 MG CAPSULE (FP) PO PRN (18:18)
[2018-06-06] MEDS: QUEtiapine FUMARATE 300 MG TABLET PO SCH (21:21)
[2018-06-06] MEDS: THIAMINE HCL 100 MG TABLET (FP) PO SCH (21:21)
[2018-06-06] MEDS: RANITIDINE HCL 150 MG TABLET (FP) PO SCH (21:21)
[2018-06-07] MEDS: IBUPROFEN 400 MG TABLET (FP) PO PRN ×2 (00:50→08:41)
[2018-06-07] MEDS: METHOCARBAMOL 500 MG TABLET PO PRN ×2 (00:52→08:42)
[2018-06-07] MEDS ORDERED: METHADONE HCL 5 MG TABLET (FOR DETOX USE ONLY) PO ONE (06:00)
[2018-06-07] MEDS: hydrOXYzine PAMOATE 25 MG CAPSULE (FP) PO PRN (08:42)
[2018-06-07 09:17] VITALS: BP 112/67; PULSE 78; TEMP 97.6
[2018-06-07] MEDS: levETIRAcetam 500 MG TABLET (FP) PO SCH (11:02)
[2018-06-07] MEDS: BUDESONIDE/FORMETEROL FUMARATE 80/4.5 mcg INHALER IH SCH (11:03)
[2018-06-07] MEDS: SERTRALINE HCL 50 MG TABLET (FP) PO SCH (11:03)
[2018-06-07] MEDS: PRENATAL VITAMINS W/ FOLIC ACID TABLET (FP) PO SCH (11:03)
--- NOTE | 2018-06-07 13:17 | PN ---
S Progress Note (SOAP) Subjective: Denies any complaints Objective: 06/07/18 13:15 A & O x 3 Cast to R leg, ambulates with crutches Vital Signs Temperature 97.6 F 06/07/18 09:16 Pulse Rate 78 06/07/18 09:16 Respiratory Rate 18 06/07/18 09:16 Blood Pressure 112/67 06/07/18 09:16 O2 Sat by Pulse Oximetry (%) Assessment: 06/07/18 13:16 completed detox Plan: for discharge
--- NOTE | 2018-06-07 13:34 | DS ---
[facility] Detox Discharge Summary Admission Date: 06/03/18 Discharge Date: 06/07/18 - History Additional Comments: pt for discharge today Will call to [facility] on Saturday to enquire about rehab bed availability. States she will go back to her residence at the [facility], [address] [place] [address], [place] Will "lay low" or attend AA meetings if necessary till she can get a rehab bed. Prescription home med sent to pt's pharmacy, she understands to go pick them up - Physical Exam Results Vital Signs: Vital Signs Temperature 97.6 F 06/07/18 09:16 Pulse Rate 78 06/07/18 09:16 Respiratory Rate 18 06/07/18 09:16 Blood Pressure 112/67 06/07/18 09:16 O2 Sat by Pulse Oximetry (%) - Treatment Hospital Course: Detox Protocol Followed, Detoxed Safely, Responded well, Discharged Condition Good - Medication Discharge Medications: Ambulatory Orders Acetaminophen [Tylenol] 650 mg PO Q6H PRN 03/24/18 Dextroamphetamine/Amphetamine [Adderall 7.5 mg Tablet] 7.5 mg PO DAILY 03/24/18 Multivitamins [Tab-A-Vit -] 1 tab PO DAILY 03/24/18 Quetiapine Fumarate [Seroquel -] 300 mg PO HS 03/24/18 Quetiapine Fumarate [Seroquel] 100 mg PO AM 03/24/18 Sertraline HCl [Zoloft -] 100 mg PO DAILY 03/24/18 Cyclobenzaprine HCl [Flexeril -] 10 mg PO TID 06/03/18 Ipratropium/Albuterol Sulfate [Iprat-Albut 0.5-3(2.5) mg/3 ml] 3 ml IH Q4H PRN 06/03/18 Zolpidem Tartrate [Ambien] 10 mg PO HS 06/03/18 Albuterol Sulfate Inhaler - [Ventolin HFA Inhaler -] 2 inh PO Q4H PRN #1 inhaler 06/07/18 Budesonide/Formeterol Fumarate [SYMBICORT 80/4.5mcg -] 1 inh PO BID #1 inhaler 06/07/18 Gabapentin [Neurontin -] 400 mg PO Q8H #90 capsule 06/07/18 Naloxone HCl [Narcan] 4 mg NS PRN #1 spray 06/07/18 Ranitidine [Zantac -] 150 mg PO HS 30 Days #30 tablet 06/07/18 levETIRAcetam [Keppra -] 1,000 mg PO BID 30 Days #60 tablet 06/07/18 - AMA Did Patient Leave Against Medical Advice: No
== END 2018-06-07 12:00 | disposition home or self-care (01) | DRG 773 ==
LOC: YASAS 10:58 → Y6N 14:55
PROVIDERS: ADMIT Surgery; ATTEND Surgery
PROC: HZ2ZZZZ Detoxification Services for Substance Abuse Treatment (ICD-10-PCS; principal; 2018-06-03)
DX: F11.23 Opioid dependence with withdrawal (principal); F10.230 Alcohol dependence with withdrawal, uncomplicated; F14.20 Cocaine dependence, uncomplicated; F19.24 Other psychoactive substance dependence with psychoactive substance-induced mood disorder; F19.282 Other psychoactive substance dependence with psychoactive substance-induced sleep disorder; F20.9 Schizophrenia, unspecified; F31.9 Bipolar disorder, unspecified; F90.9 Attention-deficit hyperactivity disorder, unspecified type; R56.1 Post traumatic seizures; B18.2 Chronic viral hepatitis C; J45.909 Unspecified asthma, uncomplicated; Z87.442 Personal history of urinary calculi; Z98.82 Breast implant status; Z87.81 Personal history of (healed) traumatic fracture; Z91.5 Personal history of self-harm
CPT/HCPCS: 36415; 80053; 85027; 86593; J0735